=== PATIENT | male | born 1945 | race Caucasian/White ===

== ENCOUNTER 2024-07-03 00:46 | Inpatient (IN) | payer OTHER ==
[~2024-07-03] VITALS: Ht 182.9 cm; Wt 103.0 kg
[2024-07-03] MEDS ORDERED: Ondansetron HCl 2 MG / ML 2ML Vial IV PRN (01:30)
[2024-07-03 02:00] LABS: Source, Urine Clean Catch
[2024-07-03 02:03] LABS: Bilirubin, Urine Neg (Neg); Blood, Urine 5+ (Neg); Glucose Qualitative, Urine Neg (Neg); Ketones, Urine Neg (Neg); Leukocyte Esterase, Urine 3+ (Neg); Nitrite, Urine Neg (Neg); Protein, Urine 3+ (Neg); Urobilinogen, Urine NORM (Normal)
[2024-07-03 02:08] LABS: Appearance, Urine Hazy (Clear); Color, Urine Yellow (P-Yellow)
[2024-07-03 02:15] LABS: Bacteria Many /hpf; Squamous Epithelial Cells Few /hpf (Few); White Blood Cells, Urine TNTC /hpf (0-5)
[2024-07-03 03:33] LABS: BASOPHILS ABSOLUTE AUTO 0.04 K/mm3 (0.00-0.23); BASOPHILS PERCENT AUTO 1 % (0-2); EOSINOPHILS PERCENT AUTO 0 % (0-6); Hematocrit 28.4 % (37.0-53.0); Hemoglobin 9.3 g/dL (13.5-17.5); IMMATURE GRAN ABSOLUTE AUTO 0.03 K/mm3 (0.00-0.10); IMMATURE GRAN PERCENT AUTO 0 % (0-1); LYMPHOCYTES ABSOLUTE AUTO 1.39 K/mm3 (0.84-5.20); LYMPHOCYTES PERCENT AUTO 17 % (21-46); MONOCYTES ABSOLUTE AUTO 0.89 K/mm3 (0.16-1.47); MONOCYTES PERCENT AUTO 11 % (4-13); Mean Corpuscular HGB 27.5 pg (26.0-34.0); Mean Corpuscular HGB Conc 32.7 g/dL (31.5-36.5); Mean Corpuscular Volume 84 fL (80-100); Mean Platelet Volume 8.6 fL (9.1-12.4); NEUTROPHILS ABSOLUTE AUTO 5.85 K/mm3 (1.96-9.15); NEUTROPHILS PERCENT AUTO 71 % (41-73); Platelet Count 422 K/mm3 (150-400); RDW Coefficient Variation 18.8 % (11.7-14.2); Red Blood Cell Count 3.38 M/mm3 (4.30-5.90)
[2024-07-03 04:10] LABS: Alanine Aminotransfer (ALT/SGP 15 U/L (12-78); Albumin, Blood 2.9 g/dL (3.4-5.0); Albumin/Globulin Ratio 0.6 (0.8-1.8); Alk Phos 106 U/L (50-136); Anion Gap 14 mmol/L (3-11); Aspartate Aminotrans (AST/SGOT 11 U/L (12-37); Bilirubin, Total 0.6 mg/dL (0.1-1.0); Blood Urea Nitrogen 34 mg/dL (8-24); Bun/Creatinine Ratio 17.6 (12.0-20.0); CO2, Blood 21 mmol/L (21-32); Calcium, Blood 9.3 mg/dL (8.5-10.1); Chloride, Blood 106 mmol/L (98-108); Creatinine, Blood 1.93 mg/dL (0.60-1.20); Globulin, Blood 4.7 g/dL (2.2-4.0); Glomerular Filtration Rate 35 (60-); Glucose, Blood 146 mg/dL (70-99); Potassium, Blood 4.6 mmol/L (3.5-5.5); Sodium, Blood 136 mmol/L (136-145); Total Protein, Blood 7.6 g/dL (6.4-8.2)
[2024-07-03] MEDS ORDERED: Acetaminophen 325 MG TABLET PO ONE (04:20)
[2024-07-03] MEDS ORDERED: NS 1,000 ML IV SCH ×2 (04:40→06:00)
[2024-07-03] MEDS ORDERED: CefTRIAXone Sodium 1,000 MG in NS 50 ML IV ONE (04:40)
[2024-07-03] MEDS ORDERED: FLU VACC TS2024-25(6MOS UP)/PF 45 MCG/0.5 ML SYRINGE IM SCH (05:00)
[2024-07-03] MEDS ORDERED: Acetaminophen 325 MG TABLET PO PRN (05:00)
[2024-07-03 05:10] LABS: Salicylate <1.7 mg/dL (2.8-20.0)
[2024-07-03 05:16] LABS: Acetaminophen, Random <2.0 ug/mL (10.0-30.0)
[2024-07-03 05:39] LABS: Bicarbonate Venous 22.1 mmol/L (24.0-30.0); PCO2 Venous 37.7 mmHg (38-42); pH Blood Venous 7.38 (7.34-7.37)
[2024-07-03] MEDS ORDERED: TRAM50 PO (06:30)
[2024-07-03] MEDS ORDERED: OZEMPIC0.25 MG/02 SC (06:31)
[2024-07-03] MEDS ORDERED: ACET500 PO (06:32)
[2024-07-03] MEDS ORDERED: OXAYDO5 M1 PO (06:34)
[2024-07-03] MEDS ORDERED: FERROUS GLUCON324 M7 PO (06:34)
[2024-07-03] MEDS ORDERED: TRAZ100 PO (06:35)
[2024-07-03] MEDS ORDERED: LOSA50 PO (06:35)
[2024-07-03] MEDS ORDERED: Vitamin D1000 UNI1 PO (06:36)
[2024-07-03] MEDS ORDERED: FINA5 PO (06:36)
[2024-07-03] MEDS ORDERED: GABA300 PO (06:38)
[2024-07-03] MEDS ORDERED: Flonase 0.05% N16 GM (06:38)
[2024-07-03] MEDS ORDERED: NOVOLOG100 UNIT/3 SQ (06:39)
[2024-07-03] MEDS ORDERED: INSULANI SC (06:40)
[2024-07-03] MEDS ORDERED: Synthroid200 MCG PO (06:42)
[2024-07-03] MEDS ORDERED: OMEP20ER PO (06:42)
[2024-07-03] MEDS ORDERED: METF500 PO (06:42)
[2024-07-03] MEDS ORDERED: ZOCOR20 MG PO (06:43)
[2024-07-03] MEDS ORDERED: TAMS.4ER PO (06:43)
[2024-07-03] MEDS ORDERED: Vitamin B Comple1 EA PO (06:44)
[2024-07-03] MEDS ORDERED: Polyethylene Glycol 3350 17 gm PO PRN (07:15)
[2024-07-03] MEDS ORDERED: Lactobacil 2-S.Thermo-Bifido 1 1 Cap PO SCH (09:00)
[2024-07-03] MEDS ORDERED: Cholecalciferol 1000 Unit Tablet (=25MCG) PO SCH (09:00)
[2024-07-03] MEDS ORDERED: QUEtiapine Fumarate 25 MG Tab PO PRN (10:40)
[2024-07-03 11:11] VITALS: BP 136/88
[2024-07-03] MEDS ORDERED: Insulin Glargine-Yfgn 100 Unit/mL 3 ML SYR SC SCH (14:00)
[2024-07-03 16:30] VITALS: BP 151/89
[2024-07-03] MEDS ORDERED: Insulin Human Lispro 100 Units/ML 3ML Syringe SC SCH (16:30)
[2024-07-03] MEDS ORDERED: Omeprazole 20 MG CapCR PO SCH (16:30)
--- NOTE | 2024-07-03 18:19 | NUR ---
SHIFT SUMMARY: NEW ADMIT THIS SHIFT. PT A&O X4. PT UNCOOPERATIVE/DEFENSIVE/ARGUMENTATIVE WITH CARE. SEROQUEL PROVIDED PER EMAR. PT C/O NS INFUSION ASKING STAFF TO "MAKE IT GO FASTER." EXPLAINED TO PT REASONING FOR SLOWER INFUSION RATE. PT UNRECEPTIVE WITH EXPLANATION. PT DEMANDING STAFF PUT ANOTHER IV IN DESPITE CURRENT IV WORKING WELL. PT STATED "JUST GIVE ME A MEDIPORT." PT REFUSED 40 UNIT LONG ACTING INSULIN AND ONLY WANTED 30 UNITS. DINNER BLOOD SUGAR OF 221. POST BLOOD SUGAR CHECK, PT STATED "JUST BRING ME 15 UNITS SHORT ACTING." EXPLAINED TO PT SLIDING SCALE INSULIN. PT VERY UNHAPPY WITH 4 UNITS PER SLIDING SCALE STAFF PROVIDED. PT SON STATED PT DOES NOT HAVE DEMENTIA. PT BEGAN ACTING CONFUSED ON CAR RIDE TO [place] AND WAS HAVING URINARY FREQUENCY. PT C/O R. HIP PAIN. PT SON STATES PT TO HAVE HIP REPLACEMENT SURGERY AT END OF MONTH. BURN NOTED TO L. HIP. PT STATES FROM WOOD STOVE APPROX THREE WEEKS AGO. REDNESS AND RASH NOTED TO BUTT[place] REGION.
[2024-07-03 19:31] VITALS: BP 154/71
[2024-07-03] MEDS ORDERED: Docusate Sodium/Senna 1 Tab PO SCH (21:00)
[2024-07-03] MEDS ORDERED: Gabapentin 300 MG Cap PO SCH (21:00)
[2024-07-03] MEDS ORDERED: Tamsulosin HCl 0.4 MG Cap PO SCH (21:00)
[2024-07-04 04:11] VITALS: BP 138/91
--- NOTE | 2024-07-04 04:20 | NUR ---
SHIFT SUMMARY PATIENT IRRITABLE AND ARGUMENTIVE FIRST PART OF SHIFT. SEROQUEL 25 MG GIVEN FOR ANXIETY. AXOX 3-4 AND BEDREST. REPORTS USES W/C AT HOME. DENIES CHEST PAIN, SOB, AND N/V. VSS/AFEBRILE. USES URINAL AT BEDSIDE. CBG 165. REPORTED ONLY WANTED 5 UNITS OF GLARGINE AT NIGHT REFUSING THE 40 UNITS. REPORTS HE TAKES 30 UNITS IN MORNING AND ADJUST DOSE IN EVENING DEPENDING ON CBG AT HOME. CALLS OUT FOR CARE AND REMINDED TO USE CALL LIGHT. BED IN LOWEST POSITION. WILL CONTINUE TO MONITOR UNTIL DAY SHIFT NURSE ASSUMES CARE.
--- NOTE | 2024-07-04 05:48 | NUR ---
PATIENT REFUSING LABS AT THIS TIME. REPORTS FOR LAB TO COME BACK IN A FEW HOURS. WCTM.
[2024-07-04] MEDS ORDERED: Levothyroxine Sodium 0.1 MG Tab PO SCH (06:00)
[2024-07-04 07:31] VITALS: BP 144/75
[2024-07-04 08:08] LABS: Hematocrit 25.9 % (37.0-53.0); Hemoglobin 8.4 g/dL (13.5-17.5); Mean Corpuscular HGB 27.5 pg (26.0-34.0); Mean Corpuscular HGB Conc 32.4 g/dL (31.5-36.5); Mean Corpuscular Volume 85 fL (80-100); Mean Platelet Volume 8.6 fL (9.1-12.4); Platelet Count 377 K/mm3 (150-400); RDW Coefficient Variation 18.9 % (11.7-14.2); Red Blood Cell Count 3.05 M/mm3 (4.30-5.90); White Blood Cell Count 5.91 K/mm3 (4.00-11.30)
[2024-07-04 08:25] LABS: Albumin, Blood 2.5 g/dL (3.4-5.0); Anion Gap 11 mmol/L (3-11); Blood Urea Nitrogen 28 mg/dL (8-24); Bun/Creatinine Ratio 17.6 (12.0-20.0); CO2, Blood 21 mmol/L (21-32); Calcium, Blood 8.9 mg/dL (8.5-10.1); Chloride, Blood 115 mmol/L (98-108); Creatinine, Blood 1.59 mg/dL (0.60-1.20); Glomerular Filtration Rate 44 (60-); Glucose, Blood 114 mg/dL (70-99); Magnesium, Blood 1.7 mg/dL (1.6-2.4); Potassium, Blood 4.2 mmol/L (3.5-5.5); Sodium, Blood 143 mmol/L (136-145)
[2024-07-04] MEDS ORDERED: CefTRIAXone Sodium 1,000 MG in NS 100 ML IV SCH (09:00)
[2024-07-04] MEDS ORDERED: Heparin Sodium,Porcine 5,000 UNIT/0.5 ML SDV SC SCH (09:00)
[2024-07-04] MEDS ORDERED: Finasteride 5 MG Tab PO SCH (09:00)
--- NOTE | 2024-07-04 09:00 | NUR ---
attempted to place tirado, was unsucessful, pt tolerated, son in to see him, had charged nurse attempt, she had same result as this nurse, another nurse agreed to attempt, used two uro jets, and with difficulty was able to get it in, cloudy dark yellow urine draining into tirado bag, pt grabbed bag and was holding it on his lap, was given tylenol for pain. call light in reach.
--- NOTE | 2024-07-04 09:00 | NUR ---
pt laying in bed awake a/ox3-4, forgetful, cooperative with care, trying to manage his insulin, refused to take the dose of long acting that is ordered, wanted 10 units, gave him 10, lungs are clear in upper tsai, dim in bases, resp even and unlabored, no cough noted, hrr, no edema noted, ppp+1, cap refill< 3 sec, vs stable, afebrile, iv to erma site is clear and patent, btx4, abd flat soft nontender, voids via urinal but is having a bit of trouble he's voiding small amounts, in room, did a bladder scan, has over 650mls, ordered a tirado for retention, skin c/w/d, kelli mullins, call light in reach.
[2024-07-04] MEDS ORDERED: Lidocaine 2% Jelly Uro-Jet UR ONE ×3 (10:30→13:05)
[2024-07-04 15:56] VITALS: BP 142/67
[2024-07-04] MEDS ORDERED: HYDROcodone 5-APAP 325 TAB PO PRN (16:20)
--- NOTE | 2024-07-04 18:09 | NUR ---
started pt on norco for pain, he said pain is some better, no further changes this shift. call light in reach.
[2024-07-04 19:09] VITALS: BP 134/85
[2024-07-05 02:46] VITALS: BP 164/93
--- NOTE | 2024-07-05 04:28 | NUR ---
SHIFT SUMMARY PATIENT IS ALERT AND ORIENTED 3-4X. PATIENT HAS HAD NO ACUTE EVENTS THIS SHIFT. VITAL SIGNS REVIEWED. PATIENT REFUSED HIS EVENING LONG ACTING INSULIN AND ACCEPTED ONLY 15 UNITS. HEATH IS PATENT AND DRAINING CLOUDY URINE TO GRAVITY. PATIENT HAS COMPLAINED OF PAIN AND MEDICATE PER EMAR. PATIENT HAS NO COMPLAINTS OF SOB, NAUSEA, OR VOMITTING PATIENT IS A 2X ASSIST TO COMMODE. BED IN LOCKED AND LOWEST POSITION. CALL LIGHT IN PLACE.
[2024-07-05 05:42] LABS: Hematocrit 26.1 % (37.0-53.0); Hemoglobin 8.3 g/dL (13.5-17.5); Mean Corpuscular HGB 26.8 pg (26.0-34.0); Mean Corpuscular HGB Conc 31.8 g/dL (31.5-36.5); Mean Corpuscular Volume 84 fL (80-100); Mean Platelet Volume 8.7 fL (9.1-12.4); Platelet Count 402 K/mm3 (150-400); RDW Coefficient Variation 18.6 % (11.7-14.2); RDW Standard Deviation 57.1 fL (35.1-46.3); White Blood Cell Count 6.53 K/mm3 (4.00-11.30)
[2024-07-05 06:05] LABS: Albumin, Blood 2.4 g/dL (3.4-5.0); Anion Gap 13 mmol/L (3-11); Blood Urea Nitrogen 25 mg/dL (8-24); CO2, Blood 19 mmol/L (21-32); Calcium, Blood 8.7 mg/dL (8.5-10.1); Chloride, Blood 110 mmol/L (98-108); Creatinine, Blood 1.39 mg/dL (0.60-1.20); Glomerular Filtration Rate 52 (60-); Glucose, Blood 210 mg/dL (70-99); Magnesium, Blood 1.4 mg/dL (1.6-2.4); Phosphorus, Blood 4.1 mg/dL (2.5-4.9); Potassium, Blood 4.5 mmol/L (3.5-5.5); Sodium, Blood 137 mmol/L (136-145)
[2024-07-05 07:24] VITALS: BP 145/93
[2024-07-05] MEDS ORDERED: Mag Sulfate 1 GM/D5% 100ML 100 ML IV STA (07:28)
[2024-07-05] MEDS ORDERED: NS 250 ML IV PRN (09:35)
[2024-07-05] MEDS ORDERED: CIPR250 PO (13:30)
--- NOTE | 2024-07-05 15:38 | NUR ---
DISCHARGE NOTE MR CRUZ WAS CONFUSED, ORIENTATED TO SELF, "HOSPITAL", TO MONTH BUT NOT YEAR. HE ENTERS INTO CONVERSATION AND DIRECTED HIS INSULIN REGIME BUT IT WAS DIFFERENT TO THE ORDERED AMOUNT ON HIS MAR. UP TO THE CHAIR WITH 1-2 PERSON ASSISTANCE WITH GAIT BELT AND WALKER. HE IS SCHEDULED FOR A RIGHT HIP REPLACEMENT LATER THIS MONTH AND SAID THAT HE HAS LIMITED MOBILITY AT [place]. HIS SON HAS BEEN LIVING WITH HIM, THEY WERE TRAVELING TOGETHER THROUGH [place] PRE ADMISSION. HIS SON VERBALISED UNDERSTANDING OF WRITTEN AND VERBAL DISCHARGE INSTRUCTIONS. HIS SON SAID HE HAS TAKEN CARE OF A HEATH CATHETER BEFORE AND VERBALISED UNDERSTANDING OF CARE AND RISKS. PT AND SON SAID THEY FEEL COMFORTABLE WITH DISCHARGE, NO NEW CONCERNS VOICED PRIOR TO D/C. PIV REMOVED INTACT. W/C ESCORT TO VEHICLE. LEFT AT 1450HRS.
== END 2024-07-05 14:50 | disposition home or self-care (01) | DRG 689 ==
LOC: ER 00:46 → MEDS 00:47 → ERHOLD 00:47 → MEDS 10:50 → ENPENDDIS 07-05 12:38 → MEDS 07-05 14:50
PROVIDERS: Emergency Medicine; Internal Medicine; ADMIT Internal Medicine
DX: N39.0 Urinary tract infection, site not specified (principal); G92.8 Other toxic encephalopathy; N17.9 Acute kidney failure, unspecified; F03.90 Unspecified dementia, unspecified severity, without behavioral disturbance, psychotic disturbance, mood disturbance, and anxiety; E86.0 Dehydration; N18.30 Chronic kidney disease, stage 3 unspecified; D63.1 Anemia in chronic kidney disease; M16.10 Unilateral primary osteoarthritis, unspecified hip; N40.1 Benign prostatic hyperplasia with lower urinary tract symptoms; R33.8 Other retention of urine; Z91.040 Latex allergy status
CPT/HCPCS: 36415; 76770; 80053; 80069; 81001; 82803; 82947; 83605; 83735; 84443; 85025; 85027; 87040; 87077; 87086; 87186; 93005; 93010; 96361; 96365; 96366; 96367; 96372; 96375; 99284-25; A9270; G0378; G0480; J0696; J1644; J1815; J3475; J7030; J7050